=== PATIENT | female | born 1975 | race Caucasian/White ===

== ENCOUNTER 2017-02-07 14:20 | Outpatient (CLI) | payer OTHER ==
--- NOTE | 2017-02-07 15:57 | RAD ---
LUMBAR SPINE THREE VIEWS INCLUDING FLEXION AND EXTENSION LATERAL VIEWS: History: 41-year-old female with low back pain and left hip pain for three years. FINDINGS: Multilevel disc osteophytosis changes are noted. No evidence for abnormal anterior or retrolisthesis. No abnormal translation between flexion and extension. IMPRESSION: Generalized spondylosis. No abnormal translation between flexion and extension. POS: [facility]
== END 2017-02-07 14:21 | disposition home or self-care (01) ==
LOC: TBSIIMAG 14:20
PROVIDERS: ATTEND Neurological Surgery
DX: Q76.2 Congenital spondylolisthesis (principal); M47.896 Other spondylosis, lumbar region
CPT/HCPCS: 72100